=== PATIENT | male | born 1950 | race Two or more races ===

== ENCOUNTER 2023-05-29 14:02 | Day surgery (SDC) | payer MEDICARE, BC ==
[2023-05-23 15:41] LABS: BASOPHILS # (AUTO) 0.1 X10'3 (0-0.2); BASOPHILS % (AUTO) 1.8 % (0-1); EOSINOPHILS # (AUTO) 0.4 X10'3 (0-0.9); EOSINOPHILS % (AUTO) 6.5 % (0-6); LYMPHOCYTES % (AUTO) 15.2 % (21-51); MEAN CORPUSCULAR HEMOGLOBIN 26.7 PG (27.0-31.0); MEAN CORPUSCULAR HGB CONC 32.6 g/dL (33.0-36.5); MEAN CORPUSCULAR VOLUME 81.8 FL (78-98); MEAN PLATELET VOLUME 8.5 FL (7.4-10.4); MONOCYTES # (AUTO) 0.4 X10'3 (0-0.9); MONOCYTES % (AUTO) 5.9 % (2-12); NEUTROPHILS # (AUTO) 4.8 X10'3 (1.8-7.7); NEUTROPHILS % (AUTO) 70.6 % (42-75); PRE OP HEMATOCRIT 41.8 % (42.0-52.0); PRE OP HEMOGLOBIN 13.6 g/dL (14.0-17.9); PRE OP PLATELET COUNT 251 X10'3 (140-440); RED BLOOD COUNT 5.11 X10'6 (4.70-6.10); RED CELL DISTRIBUTION WIDTH 16.2 % (11.5-14.5)
[2023-05-23 15:49] LABS: ALBUMIN 3.7 G/DL (3.4-5.0); ALBUMIN/GLOBULIN RATIO 1.1 (1.1-1.5); ALKALINE PHOSPHATASE 96 IU/L (46-116); BLOOD UREA NITROGEN 18 MG/DL (7-18); BUN/CREATININE RATIO 13.6 (10.0-20.0); CHLORIDE 101 MMOL/L (99-107); CREATININE 1.32 MG/DL (0.60-1.10); PRE OP ALT 39 U/L (30-65); PRE OP ANION GAP 9 (8-16); PRE OP AST 23 U/L (10-37); PRE OP BILIRUB, TOTAL 0.3 MG/DL (0.0-1.0); PRE OP GLUCOSE 108 MG/DL (70-104); PRE OP POTASSIUM 3.9 MMOL/L (3.4-5.1); PRE OP SODIUM 141 MMOL/L (135-145); TOTAL CARBON DIOXIDE 30.8 MMOL/L (24-32); eGFR 53 ML/MIN
[2023-05-29] VITALS (10 sets, daily range): BP systolic 116–144; BP diastolic 75–83; PULSE 55–80; RESP 10–15; TEMP 97.8; O2SAT 93–98
[~2023-05-29] VITALS: Ht 167.6 cm; Wt 74.8 kg
[~2023-05-29 14:02] MED LIST: ALPR1TAB7 PO; AMLO10TA13 PO; HYDR12.55 PO; IBUP-1985 PO; IMPLANTED PAIN PUMP; METH20TA40 PO; OMEP20CA15 PO; OMEP20CA16 PO; PARO20TA6 PO; POLY119P2 PO; PSYL575P22 PO; SIMV-45 PO; cefazolin 2gm/D5W 100mL 100 ML IV ONE; famotidine 20mg tablet PO ONE; fentaNYL/PF 50MCG/1 ML 2ML syringe IV PRN; hydrALAZINE 20mg/ml inj. IV PRN; labetalol 20mg/4ml (5mg/ml) syringe IV PRN; morphine 2 MG/ML inj. syringe IV PRN; morphine 4 MG/ML inj SYRINge IV PRN; ondansetron/PF 4mg/2ml inj IV PRN; ringers solution, lacted 1,000 ML IV SCH
[2023-05-29] MEDS ORDERED: BUPIVAcaine/PF 2.5 mg/ml (0.25%) 30ml vial IJ ONE (15:30)
[2023-05-29] MEDS ORDERED: LIDOcaine 1% 30ml preserv. free vial IJ ONE (15:30)
[2023-05-29] MEDS ORDERED: midazolam 1 mg/ML 2ml injection ONE (15:31)
[2023-05-29] MEDS ORDERED: fentaNYL/PF 50MCG/1 ML 2ML syringe ONE (15:31)
[2023-05-29] MEDS ORDERED: propofol inj 20 ML IV ONE (15:32)
[2023-05-29] MEDS ORDERED: ondansetron/PF 4mg/2ml inj ONE (15:32)
[2023-05-29] MEDS ORDERED: LIDOcaine 2% (20mg/ml) 5ml vial ONE (15:32)
[2023-05-29] MEDS ORDERED: rocuronium 10mg/ml inj IV ONE (15:32)
[2023-05-29] MEDS ORDERED: glycopyrrolate 0.2mg/ml inj ONE (15:32)
[2023-05-29] MEDS ORDERED: neostigmine methylsulfate 1 MG/ML 10ml vial ONE (15:32)
[2023-05-29] MEDS ORDERED: dexamethasone sod phosphate 10mg/ml inj ONE (15:34)
[2023-05-29] MEDS ORDERED: desflurane 240ml liquid inh. IH ONE (15:34)
[2023-05-29] MEDS ORDERED: LIDOcaine 1% (10mg/ml)w/preservative inj. 20ml MDV ONE (15:52)
[2023-05-29] MEDS ORDERED: BUPIVAcaine/PF 2.5 mg/ml (0.25%) 30ml vial ONE (15:52)
[2023-05-29] MEDS ORDERED: oxyCODONE/APAP 5-325mg tablet PO PRN (16:40)
--- NOTE | 2023-05-29 16:41 | NUR ---
Received from OR via , accompanied by Anesthesiologist DR ADAN and report given by Anesthesiolgist. VSS. ON 10 LITERS O2 WITH MASK SATTING AT 96%. DRESSING ON LOWER MID ABD. IV IN RFA 20G Addendum: 05/29/23 at 1724 by Emilia Nelson RN Amended: Links added.
--- NOTE | 2023-05-29 18:01 | NUR ---
PATIENT MEETS DISCHARGE CRITERIA. VSS. IV DC'D WITH NO ISSUES. PATIENT STATES NO PAIN. HEARING AIDS WERE LEFT WITH HIS PRIOR TO SURGERY. WHEELED PATIENT TO HIS 'S CAR. Addendum: 05/29/23 at 1806 by Emilia Nelson RN Amended: Links added.
== END 2023-05-29 18:01 | disposition home or self-care (01) ==
LOC: PAS 14:02
PROVIDERS: ATTEND Surgery
DX: K42.9 Umbilical hernia without obstruction or gangrene (principal); I10 Essential (primary) hypertension; E78.5 Hyperlipidemia, unspecified; G43.909 Migraine, unspecified, not intractable, without status migrainosus; F32.A Depression, unspecified; F41.9 Anxiety disorder, unspecified; K21.9 Gastro-esophageal reflux disease without esophagitis; M19.90 Unspecified osteoarthritis, unspecified site; G89.29 Other chronic pain; Z96.641 Presence of right artificial hip joint; Z98.41 Cataract extraction status, right eye; Z98.42 Cataract extraction status, left eye; Z98.890 Other specified postprocedural states; Z88.8 Allergy status to other drugs, medicaments and biological substances; Z79.899 Other long term (current) drug therapy; Z82.49 Family history of ischemic heart disease and other diseases of the circulatory system; Z82.61 Family history of arthritis
CPT/HCPCS: 36415; 49593; 80053; 82948; 85025; 93005; C1781; J0690; J1100; J2250; J2405; J2704; J2710; J3010; J3490; J7030; J7120; Z7506; Z7508; Z7512; A4615; A4618; A7000